=== PATIENT | female | born 1990 | race American Indian/Alaskan Native ===

== ENCOUNTER 2020-09-25 15:34 | Emergency (ER) | payer OTHER | END 2020-09-25 16:30 | disposition left against medical advice (07) | LOC: ED 15:34 | DX: S61.412A Laceration without foreign body of left hand, initial encounter (principal); Z53.21 Procedure and treatment not carried out due to patient leaving prior to being seen by health care provider; X58.XXXA Exposure to other specified factors, initial encounter; Y93.89 Activity, other specified; Y92.89 Other specified places as the place of occurrence of the external cause; Y99.8 Other external cause status ==

== ENCOUNTER 2021-02-19 13:08 | Emergency (ER) | payer SELFPAY ==
[2021-02-19 13:19] VITALS: BP 126/75
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
== END 2021-02-19 15:27 | disposition left against medical advice (07) ==
LOC: ED 13:08
DX: S43.401A Unspecified sprain of right shoulder joint, initial encounter (principal); Z79.899 Other long term (current) drug therapy; V49.49XA Driver injured in collision with other motor vehicles in traffic accident, initial encounter; Y92.410 Unspecified street and highway as the place of occurrence of the external cause; Y93.89 Activity, other specified; Y99.8 Other external cause status
CPT/HCPCS: 99283

== ENCOUNTER 2021-07-24 11:08 | Emergency (ER) | payer SELFPAY ==
[2021-07-24 11:21] VITALS: BP 131/64
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
== END 2021-07-24 11:38 | disposition home or self-care (01) ==
LOC: ED 11:08
DX: R05 Cough (principal); R31.9 Hematuria, unspecified
CPT/HCPCS: 99281